=== PATIENT | female | born 1980 ===

== ENCOUNTER 2021-01-26 11:30 | Inpatient (IN) | payer OTHER ==
[~2021-01-26] VITALS: Ht 167.6 cm; Wt 3.2 kg
[2021-01-26] MEDS ORDERED: PRENATAL PO (16:31)
[2021-02-01] MEDS ORDERED: IRON236 MG (12:04)
[2021-02-01] MEDS ORDERED: CALCIUM500 M2 (12:04)
[2021-02-01] MEDS ORDERED: PRENATAL + DHA1 EAC1 PO (13:31)
== END 2021-02-04 14:55 | disposition home or self-care (01) | DRG 788 ==
LOC: OB/GYN 02-01 08:30 → SURG-SUITE 02-01 10:30 → O/R 02-01 10:30 → OB/GYN 02-01 11:30 → SURG-SUITE 02-01 14:24
PROVIDERS: ADMIT Obstetrics & Gynecology; ATTEND Obstetrics & Gynecology
PROC: 4A1HXFZ Monitoring of Products of Conception, Cardiac Rhythm, External Approach (ICD-10-PCS; 2021-02-01)
PROC: 10D00Z1 Extraction of Products of Conception, Low, Open Approach (ICD-10-PCS; principal; 2021-02-01 08:30)
DX: O65.5 Obstructed labor due to abnormality of maternal pelvic organs (principal); O34.211 Maternal care for low transverse scar from previous cesarean delivery; Z37.0 Single live birth; Z3A.39 39 weeks gestation of pregnancy